=== PATIENT | female | born 1970 | race Caucasian/White ===

== ENCOUNTER 2019-07-24 08:29 | Outpatient (RCR) | payer OTHER, SELFPAY ==
--- NOTE | ~2019-07-24 | XR_ITS ---
XR chest 2V DATE: 07/19/2019 09:36 INDICATION: Productive cough. Lung crackles. TECHNIQUE: PA and lateral views COMPARISON: None FINDINGS: Heart size is within normal range. Prominent left cardiophrenic fat pad. No hilar or medias tinal enlargement. No pulmonary infiltrate or consolidation, pleural effusion or pulmonary vascular congestion or pneumo thorax. Included skeletal structures are unremarkable other than mild upper thoracic levoscoliosis. IMPRESSION: No active cardiopulmonary disease Reviewed, dictated and finalized at location A.
== END 2019-10-17 23:59 | disposition home or self-care (01) ==
LOC: ANHLAB 08:29
PROVIDERS: PCP Emergency Medicine; Visit Provider Internal Medicine Critical Care Medicine
DX: J45.909 Unspecified asthma, uncomplicated (principal); R05 Cough
CPT/HCPCS: 36415; 71046; 82785; 86003; 87015; 87070; 87102; 87107; 87116; 87205; 87206; 89190

== ENCOUNTER 2019-08-09 09:12 | Outpatient (CLI) | payer OTHER, SELFPAY ==
--- NOTE | 2019-08-15 13:49 | WPDPFTINT ---
PFT Interpretation PFT Interpretation: This PFT met all criteria for ATS standards and reproducibility FEV/FVC post bronchodilator 79% of predicted FEV1 102% or 2.38 liters FVC 97% or 3.00 liters There was signficant improvement in both FEV1 and FVC post bronchodilator but this could have been due to improved patient technique in the post bronchodilator trial TLC 109% of preidcted or 4.99 liters RV 97% RV/TLC 38% DLCO 87% when adjusted for alveolar volume but not adjusted for hemoglobin Flow volume loops were normal Nitrogen Oxide breath test measurement was 54 ppb which considered high Impression: No significant obstruction or restriction. Nitrogen Oxide breath test was high. If Asthma is still suspected but not confirmed may consider Methcholine challenge testing. If Asthma is already diagnosed, the high NIOX may suggest suboptimal control. Clinical correlation is advised.
== END 2019-08-09 09:13 | disposition home or self-care (01) ==
PROVIDERS: PCP Emergency Medicine; Visit Provider Internal Medicine Critical Care Medicine
DX: J45.909 Unspecified asthma, uncomplicated (principal)
CPT/HCPCS: 94060; 94726; 94729; 95012

== ENCOUNTER 2020-09-06 12:46 | Emergency (ER) | payer OTHER, SELFPAY ==
[2020-09-06 13:20] VITALS: BP 108/78; PULSE 92; RESP 16; TEMP 37.1; O2SAT 97
--- NOTE | 2020-09-06 13:46 | ED.URI ---
HPI - URI/Sore Throat General Chief Complaint: Upper Respiratory Infection Stated Complaint: COUGH Source: patient and RN notes reviewed Limitations: no limitations History of Present Illness HPI Narrative: The patient, a non-smoker/nondrinker hospital tech, presents with congestion and cough.. The Covid vaccinated patient notes about 1/2-week history of chills, mildly productive cough, congestion; symptoms are mild, unimproved with vfou-kev-nqmakmy preps like Mucinex. No fever, wheezing, sore throat now [but she did have initially] earache. Ribhp-lq-dhmt testing for Covid antigen is negative here. Related Data Allergies Allergy/AdvReac Type Severity Reaction Status Date / Time No Known Allergies Allergy Mild Verified 07/18/19 10:42 Review of Systems Review of Systems: Narrative: General/Constitutional: No weight loss,fever Eyes: N0: Redness,discharge Ears/Nose/Throat: No: Epistaxis,ear discharge Respiratory: Denies: Hemoptysis Gastrointestinal: No Vomiting, Bleeding-rectal Skin: No Lumps, eruption Neurologic: No Focal Weakness,Sz Hematologic: Denies: Petechiae/Purpura Psychiatric: No: Suicida ideationl All Other Systems: Reviewed and Negative PMFSH Family History Family History (System 04/08/19 @ 16:20 by Candace Bradshaw) Father Family history of cardiovascular disease Sibling Family history of malignant melanoma, Onset Age: 29 Social History Social History (Updated 07/18/19 @ 11:24 by Ada Hayes MD) Social History: Single, works at [employer], never smoked. Smoking status: Never smoker Substance use: never Gender identity (if verbalized by the patient): Female Comments At time of signature, agree with nursing past medical, surgical, social and family history. There is no relevant family history pertinent to the presenting complaint Exam Narrative: Exam Narrative: General Appearance: Well appearing, Well nourished EYE: PERRLA, Conjunctiva clear Ears: Auditory canal normal, TM normal Nose: Rhinorrhea, Mucousal erythema Mouth/Throat: MM moist, Uvula midline, Pharyngeal erythema Neck: Supple, No adenopathy Respiratory: No respiratory distress, Breath sounds equal, Clear to auscultation Cardiovascular: RRR, No JVD Musculoskeletal: Non tender, Normal strength Skin: Warm, Dry Neurological: A&O x3, CN II-XII intact Psychiatric: Normal mood, Normal affect Course Vital Signs Vital signs: Vital Signs Temperature 98.8 F 09/06/20 13:20 Pulse Rate 92 09/06/20 13:20 Respiratory Rate 16 09/06/20 13:20 Blood Pressure 108/78 09/06/20 13:20 Pulse Oximetry 97 09/06/20 13:20 Temperature 98.8 F 09/06/20 13:20 Pulse Rate 92 09/06/20 13:20 Respiratory Rate 16 09/06/20 13:20 Blood Pressure 108/78 09/06/20 13:20 Pulse Oximetry 97 09/06/20 13:20 MDM - URI/Sore Throat Lab Data Labs: Lab Results 09/06/20 Range/Units 13:48 POC SARS CoV-2 Ag Negative (Negative) Discharge Plan Discharge Clinical Impression: Upper respiratory infection Patient Disposition: Home, Self-Care Condition: Stable Prescriptions: New benzonatate [Tessalon Perles] 100 mg capsule 100 mg PO TID Qty: 20 RF: 1 azelastine 137 mcg (0.1 %) aerosol,spray 137 mcg NASAL Q12H Qty: 30 RF: 0 cefuroxime axetil 500 mg tablet 500 mg PO Q12H Qty: 14 RF: 0 Other Ambulatory Orders: SARS-CoV-2 RNA, Qual RT-PCR (Routine) Location: Determined by Patient Ordered By: Donnie Neff Follow-up/Referrals: Rudolph Lawrence MD [Primary Care Provider] -
== END 2020-09-06 14:08 | disposition home or self-care (01) ==
PROVIDERS: Emergency Provider Emergency Medicine; PCP Emergency Medicine
DX: J06.9 Acute upper respiratory infection, unspecified (principal); Z53.21 Procedure and treatment not carried out due to patient leaving prior to being seen by health care provider
CPT/HCPCS: 87426; 99213; C9803; G0463

== ENCOUNTER 2020-09-25 20:44 | Emergency (ER) | payer OTHER, SELFPAY ==
--- NOTE | ~2020-09-25 | XR_ITS ---
EXAMINATION: XR knee LT min 4V EXAM DATE: 09/25/2020 21:13 INDICATION: Pain and swelling, posterior to patella. TECHNIQUE: Left knee frontal, crosstable lateral, orthogonal oblique projections for interpretation. There is no prior study for comparison. FINDINGS: No evidence osteochondral defect or joint body in the left knee joint. There are no acute fractures or dislocations identified. There is no subcutaneous gas. There is small joint effusion. There are no radiopaque foreign bodies. No evidence of osteoarthritis. IMPRESSION: 1. XR knee LT min 4V exam without acute osseous findings. 2. Small joint effusion. Reviewed, dictated and finalized at location .
--- NOTE | ~2020-09-25 | XR_ITS ---
EXAMINATION: XR wrist RT min 3V EXAM DATE: 09/25/2020 21:13 INDICATION: No known recent injury provided at this time. Pain of the TECHNIQUE: Right wrist frontal, frontal with ulnar deviation, oblique and lateral projections obtain ed and reviewed. There is no prior study for comparison. FINDINGS: Right wrist scapholunate joint space is maintained. There are no bony erosions identified. There are no acute fractures or dislocations identified. There is no subcutaneous gas. The soft ti ssue is unremarkable. There are no radiopaque foreign bodies. IMPRESSION: 1. Unremarkable XR wrist RT min 3V exam. Reviewed, dictated and finalized at location G.
[2020-09-25 20:55] VITALS: BP 100/73; PULSE 80; RESP 18; TEMP 36.6; O2SAT 98
--- NOTE | 2020-09-25 22:45 | ED.EXTPRO ---
HPI - Extremity Problem General Chief complaint: Extremity Problem,Nontraumatic Stated complaint: bilateral knee pain and wrist pain - no injury Time Seen by Provider: 09/25/20 21:49 Source: patient and RN notes reviewed Mode of arrival: ambulatory Limitations: no limitations History of Present Illness HPI Narrative: This is a healthy 49 year old female who presents for evaluation of arthralgia. Patient states she developed right lateral wrist pain yesterday. She states she notice mild swelling and increased warmth. That improved . She then states she developed right anterior knee pain. This pain improved and then she states she noticed left anterior knee pain. She states she feels like her left knee is going to give out. Her pain improves with NSAIDs. She denies calf pain, chest pain, shortness of breath. She reports she is runner but she has not suffered a known injury. Related Data Home Medications Medication Instructions Recorded Confirmed No Home Medications 09/25/20 09/25/20 Allergies Allergy/AdvReac Type Severity Reaction Status Date / Time No Known Allergies Allergy Mild Verified 09/25/20 20:59 Review of Systems Review of Systems: All systems reviewed & are unremarkable except as noted in HPI and below PMFSH Past Medical History Medical History (Updated 09/26/20 @ 00:00 by Krissy Gipson) Patient denies medical problems Family History Family History (System 04/08/19 @ 16:20 by Candace Bradshaw) Father Family history of cardiovascular disease Sibling Family history of malignant melanoma, Onset Age: 29 Social History Social History (Updated 07/18/19 @ 11:24 by Ada Hayes MD) Social History: Single, works at [employer], never smoked. Smoking status: Never smoker Substance use: never Gender identity (if verbalized by the patient): Female Exam Const: General: no acute distress and alert Nutritional Appearance: thin Resp: Effort & Inspection: normal respiratory effort Auscultation: clear to auscultation bilaterally Cardio: Rate: regular rate Rhythm: regular rhythm Heart sounds: no murmurs Skin: General skin exam: normal color Rashes: no rashes Neuro: General: patient oriented x3 and moves all extremities Extrem: Other: FROM bilateral knees, no noticeable swelling, no redness, no increased warmth. She does have pain right wrist along ulnar no redness. Psych: Mental Status: mental status grossly normal Affect: normal affect Course Reevaluation(s) Reevaluation #1: I discussed with patient and treatment of arthritis. She does have small left knee effusion. I discussed that she may be suffering from inflammatory arthritis . Treatment at this point with NSAIDs, rest and ice and she will follow up with PCP. This does not appear to be DVT, septic arthritis and gout given multiple joints. Date: 09/25/20 Time: 22:49 Vital Signs Vital signs: Vital Signs Temperature 97.8 F 09/25/20 20:55 Pulse Rate 80 09/25/20 20:55 Respiratory Rate 18 09/25/20 20:55 Blood Pressure 100/73 09/25/20 20:55 Pulse Oximetry 98 09/25/20 20:55 Temperature 97.8 F 09/25/20 20:55 Pulse Rate 80 09/25/20 20:55 Respiratory Rate 18 09/25/20 20:55 Blood Pressure 100/73 09/25/20 20:55 Pulse Oximetry 98 09/25/20 20:55 MDM - Extremity (Nontraumatic) Imaging Data Radiologist's impression: ITS Impressions Wrist X-Ray 09/25/20 21:22 IMPRESSION: 1. Unremarkable XR wrist RT min 3V exam. Knee X-Ray 09/25/20 21:23 IMPRESSION: 1. XR knee LT min 4V exam without acute osseous findings. 2. Small joint effusion. Discharge Plan Discharge Clinical Impression: Polyarthralgia, Effusion, left knee Patient Disposition: Home, Self-Care Condition: Stable Instructions: Antibiotic Form, Swollen Knee Joint (ED), Arthritis (ED) Additional Instructions: Call yo
== END 2020-09-25 23:18 | disposition home or self-care (01) ==
PROVIDERS: Emergency Provider General Practice; PCP Emergency Medicine
DX: M25.531 Pain in right wrist (principal); M25.462 Effusion, left knee; M25.562 Pain in left knee
CPT/HCPCS: 73110; 73564; 99284

== ENCOUNTER 2021-02-09 07:12 | Outpatient (CLI) | payer OTHER, SELFPAY ==
[2021-02-09 07:43] LABS: Basophils Absolute Auto 0.1 K/mm3 (0.0-0.1); Basophils Percent Auto 0.9 % (0.2-1.2); Eosinophils Absolute Auto 0.3 K/mm3 (0-0.3); Eosinophils Percent Auto 4.2 % (0-4.4); Hematocrit 42.3 % (37.0-47.0); Hemoglobin 14.3 g/dL (12.0-15.0); Immature Granulocyte Absolute 0.04 K/mm3 (0.00-0.031); Immature Granulocyte Percent A 0.6 % (0-0.5); Lymphocytes Absolute Auto 2.13 K/mm3 (0.9-3.2); Lymphocytes Percent Auto 32.3 % (18.3-44.2); Mean Corpuscular HGB Conc 33.8 g/dl (32-36); Mean Corpuscular Hemoglobin 30.7 pg (26-34); Mean Corpuscular Volume 90.8 fl (80-100); Mean Platelet Volume 10.4 fl (7.4-10.4); Monocytes Absolute Auto 0.5 K/mm3 (0.1-0.6); Neutrophils Absolute Auto 3.6 K/mm3 (1.3-6.7); Platelet Count Result 314 k/mm3 (150-375); Red Blood Count 4.66 M/mm3 (4.2-5.4); Red Cell Distribution Width 13.9 % (11.5-14.5); White Blood Count 6.6 K/mm3 (4.5-10.0)
[2021-02-09 08:10] LABS: Alanine Aminotransferase 22 U/L (4-35); Albumin Level 4.5 g/dL (3.5-5.1); Alkaline Phosphatase 61 U/L (38-126); Anion Gap 6 mmol/L (8-16); Aspartate Amino Transferase 26 U/L (14-36); Bilirubin,Total 0.8 mg/dL (0.2-1.3); Blood Urea Nitrogen 16 mg/dL (7-17); Calcium 9.4 mg/dL (8.4-10.2); Carbon Dioxide 28 mmol/L (22-30); Chloride 102 mmol/L (98-107); Cholesterol 251 mg/dL (0-200); Estimated Glomerular Filt Rate > 60; Glucose 111 mg/dL (65-110); HDL Direct 103 mg/dL; Potassium 3.8 mmol/L (3.4-5.0); Sodium 136 mmol/L (137-145); Triglycerides 98 mg/dL (<150)
[2021-02-09 08:22] LABS: LDL Cholesterol Direct 116 mg/dL
[2021-02-09 08:26] LABS: Free T4 Free Thyroxine 1.42 ng/mL (0.78-2.19)
== END 2021-02-09 07:13 | disposition home or self-care (01) ==
PROVIDERS: PCP Emergency Medicine; Visit Provider Physician Assistant
DX: R61 Generalized hyperhidrosis (principal); Z00.00 Encounter for general adult medical examination without abnormal findings; Z13.220 Encounter for screening for lipoid disorders
CPT/HCPCS: 36415; 80053; 80061; 84439; 84443; 85025

== ENCOUNTER 2021-08-10 11:13 | Emergency (ER) | payer OTHER, SELFPAY ==
[2021-08-10 11:25] VITALS: BP 103/75; PULSE 90; RESP 16; TEMP 37.8; O2SAT 98
--- NOTE | 2021-08-10 11:49 | ED.URI ---
HPI - URI/Sore Throat General Chief Complaint: Upper Respiratory Infection Stated Complaint: Sinus Time Seen by Provider: 08/10/21 11:49 Source: patient and RN notes reviewed Mode of arrival: ambulatory Limitations: no limitations History of Present Illness HPI Narrative: 50-year-old female presents to the [facility] with complaints of sinus issues and pressure. States its been going on for years. Has a history of asthma. Has had fevers. Has tried multiple dxfl-xdi-rwyanco products with no relief. Related Data Allergies Allergy/AdvReac Type Severity Reaction Status Date / Time No Known Allergies Allergy Mild Verified 09/25/20 20:59 Review of Systems Review of Systems: All systems reviewed & are unremarkable except as noted in HPI and below Constitutional: Constitutional: Reports no additional constitutional complaints, Denies chills and Denies fever(s) Eyes: Eyes: Reports no additional eye complaints ENT: Reports as per HPI and Reports nasal congestion Cardiovascular: Cardiovascular: Reports no additional cardiovascular complaints Respiratory: Respiratory: Reports no additional respiratory complaints Gastrointestinal: Gastrointestinal: Reports no additional gastrointestinal complaints Musculoskeletal: Musculoskeletal: Reports no additional musculoskeletal complaints Integumentary/Breasts: Skin/Breast: Reports system reviewed and no additional complaints, except as docu Neurologic: Reports system reviewed and no additional complaints, except as documented Psychiatric: Psychiatric: Reports no additional psychiatric complaints Allergic/Immunologic: Allergic/Immunologic: Reports no additional allergic/immunologic complaints PMFSH Past Medical History Medical History (Updated 08/10/21 @ 19:17 by Kym Lemos APRN) Patient denies medical problems Family History Family History Father Family history of cardiovascular disease Sibling Family history of malignant melanoma, Onset Age: 29 Social History Social History Social History: Single, works at [employer], never smoked. Smoking status: Never smoker Substance use: never Gender identity (if verbalized by the patient): Female Comments At the time of my signature, I reviewed and agree with the nursing past medical, surgical, social, and family history. There is no relevant family history pertinent to the patient complaint. Exam Const: General: healthy appearing, no acute distress and alert Nutritional Appearance: well nourished Orientation/consciousness: patient oriented x3 Limitations: no limitations HENMT: Head: normal to inspection Ears: external ears normal General nose exam: Normal external nose present, Abnormal mucous membranes and turbinates present boggy bilateral and erythematous bilateral and Nasal discharge present clear Throat: uvula midline and postnasal drainage Eyes: General: appearance normal, both eyes and all related structures Pupils: Equal, round and reactive pupils present Neck: Neck: normal visual inspection, no lymphadenopathy and no meningeal signs Chest: Chest palpation & inspection: normal inspection of the chest Resp: Effort & Inspection: normal respiratory effort and no use of accessory muscles Auscultation: clear to auscultation bilaterally, no crackles, no rales, no rhonchi and no wheezes Cardio: Rate: regular rate Rhythm: regular rhythm Back/Spine/Pelvis: Cervical Spine: normal cervical lordosis Thoracic/Lumbar Spine: thoracic and lumbar spine normal to inspection Skin: General skin exam: normal color Rashes: no rashes Wounds: no wounds Neuro: General: patient oriented x3, moves all extremities, no meningeal signs and no focal motor deficits Cranial nerves: Yes Equal, round and reactive pupils present Speech: normal speech Gait exam (Neuro): Normal gait present
[2021-08-10 21:05] LABS: SARS-CoV-2 RNA PCR Positive
== END 2021-08-10 12:28 | disposition home or self-care (01) ==
PROVIDERS: Emergency Provider Nurse Practitioner; PCP Emergency Medicine
DX: U07.1 COVID-19 (principal); J45.909 Unspecified asthma, uncomplicated
CPT/HCPCS: 87804; 99213; C9803; G0463; U0003; U0005

== ENCOUNTER 2021-10-19 07:58 | Outpatient (CLI) | payer OTHER, SELFPAY ==
--- NOTE | ~2021-10-19 | MM_ITS ---
EXAMINATION: MM screening jhonny BI w karson HISTORY: Screening mammogram TECHNIQUE: Craniocaudal and mediolateral oblique 3-D tomosynthesis images were obtained and synthetic 2-D images were generated. CAD analysis was submitted and interpreted. COMPARISON: 03/28/2009 bilateral screening mammogram BREAST PARENCHYMAL COMPOSITION: The breasts are heterogeneously dense, which may obscure small masses . FINDINGS: There are bilateral mammographic asymmetries. Bilateral diagnostic mammography is recommended, with u ltrasound if required. IMPRESSION: 1. Bilateral mammographic asymmetries 2. Bilateral diagnostic mammography is recommended, with ultrasound if required BI-RADS Category 0: Incomplete: Needs additional imaging evaluation. Reviewed, dictated and finalized at location A.
== END 2021-10-19 07:59 | disposition home or self-care (01) ==
LOC: ANHIMG 07:59
PROVIDERS: PCP Emergency Medicine; Visit Provider Physician Assistant
DX: Z12.31 Encounter for screening mammogram for malignant neoplasm of breast (principal)
CPT/HCPCS: 77063; 77067

== ENCOUNTER 2021-11-05 12:59 | Outpatient (CLI) | payer OTHER, SELFPAY ==
--- NOTE | ~2021-11-05 | MMUS_ITS ---
EXAMINATION: MM diagnostic jhonny BI w karson, US breast BI limited HISTORY: Bilateral breast asymmetries on screening mammogram TECHNIQUE: Additional 3-D tomosynthesis images of the breasts were performed and synthetic 2-D images were generated. CAD analysis was submitted and interpreted. High resolution limited bilateral breast ultrasound was performed. COMPARISON: 10/19/2021, 03/28/2009 FINDINGS: MAMMOGRAPHIC FINDINGS: No persistent asymmetry is identified with spot compression of either breast. There is no suspicious mass, calcification, or architectural distortion. ULTRASOUND: No suspicious cystic or solid mass is identified in either breast. IMPRESSION: 1. No mammographic or sonographic evidence of malignancy. 2. Recommend routine screening mammography in one year. BI-RADS Category 1: Negative Reviewed, dictated and finalized at location A. IMPRESSION: 1. No mammographic or sonographic evidence of malignancy. 2. Recommend routine screening mammography in one year. BI-RADS Category 1: Negative
== END 2021-11-05 13:00 | disposition home or self-care (01) ==
LOC: ANHIMG 13:00
PROVIDERS: PCP Physician Assistant; Visit Provider Physician Assistant
DX: R92.8 Other abnormal and inconclusive findings on diagnostic imaging of breast (principal)
CPT/HCPCS: 76642; 77062; 77066; G0279

== ENCOUNTER 2021-11-22 00:13 | Day surgery (SDC) | payer OTHER, SELFPAY ==
[2021-11-04 14:30] VITALS: BMI 22.9
[2021-11-22 10:46] VITALS: BP 100/63; PULSE 71; RESP 17; TEMP 36.3; O2SAT 99; BMI 22.6
[2021-11-22] MEDS: LACTATED RINGERS 1,000 ML 150 ML IV CONT (10:55)
--- NOTE | 2021-11-22 10:58 | P.HP_ITS ---
H&P: HPI History of Present Illness Date/Time: 11/22/21 10:58 Chief Complaint: Neoplasia screening. Narrative: This is a 51-year-old white female patient presents for screening colonoscopy. Patient's current weight appetite and bowel movements are normal. She denies abdominal pain. Patient has had no bleeding. Family history is noncontributory. Review of Systems Review of Systems: Review of systems noncontributory. [facility] Past Medical History Medical History (Updated 11/22/21 @ 10:59 by Dieudonne Mandujano MD) Patient denies medical problems Family History Family History Father Family history of cardiovascular disease Sibling Family history of malignant melanoma, Onset Age: 29 Social History Social History (System 08/11/21 @ 07:25 by Elvis Aguiar) Social History: Single, works at [employer], never smoked. Smoking status: Never smoker Substance use: never Substance use type: does not use Living arrangements: with family Gender identity (if verbalized by the patient): Female Spiritual care concerns: No Meds Home Medications and Allergies Home Medications Medication Instructions Recorded Confirmed Type mecobalamin (vitamin B12) 1,000 1,000 mcg PO DAILY 11/04/21 11/22/21 History mcg chewable tablet Allergies Allergy/AdvReac Type Severity Reaction Status Date / Time No Known Allergies Allergy Mild Verified 11/22/21 10:45 Vital Signs Vital Signs - 24 hr 11/22/21 10:46 Temperature 97.4 F L Pulse Rate 71 Respiratory Rate 17 Blood Pressure 100/63 Pulse Oximetry 99 Oxygen Delivery Room Air Exam Narrative: Physical exam reveals patient to be alert. Vital signs stable. HEENT exam is unremarkable. Lungs are clear to auscultation and percussion. Heart is without murmur or extra sounds. Abdomen bowel sounds present soft nontender with no organomegaly. Digital external rectal exam is normal. Assessment and Plan Assessment and plan (1) Encounter for screening colonoscopy: Code(s): Z12.11 - Encounter for screening for malignant neoplasm of colon Status: Acute Assessment and Plan: Neoplasia screening colonoscopy advised because of age. Further recommendations will be given after endoscopy.
--- NOTE | 2021-11-22 11:14 | WPDANESEPPF ---
Anes - Initial Pre Proc Eval Procedure: Operation Date: 11/22/21 11:30 Proposed Procedures p Screening Colonoscopy - Dieudonne Mandujano MD Date/Time: 11/22/21 11:14 Surgeon: Dieudonne Mandujano MD Pre Op Diagnosis: neoplasm screening Patient Data Age: 51 Gender: F Height: 1.57 m Weight: 56.3 kg Last Vital Signs Temp 97.4 F L 11/22/21 10:46 Pulse 71 11/22/21 10:46 Resp 17 11/22/21 10:46 BP 100/63 11/22/21 10:46 Pulse Ox 99 11/22/21 10:46 O2 Del Method Room Air 11/22/21 10:46 Allergies Allergy/AdvReac Type Severity Reaction Status Date / Time No Known Allergies Allergy Mild Verified 11/22/21 10:45 Home Medications Medication Instructions Recorded Confirmed Type mecobalamin (vitamin B12) 1,000 1,000 mcg PO DAILY 11/04/21 11/22/21 History mcg chewable tablet Patient hx anesthesia problems: none Family hx anesthesia problems: none Results Review: All pre-operative results and documents have been reviewed as part of the pre-operative evaluation. [facility] Past Medical History Medical History (Updated 11/22/21 @ 10:59 by Dieudonne Mandujano MD) Patient denies medical problems Family History Family History Father Family history of cardiovascular disease Sibling Family history of malignant melanoma, Onset Age: 29 Social History Social History (System 08/11/21 @ 07:25 by Elvis Aguiar) Social History: Single, works at [employer] never smoked. Smoking status: Never smoker Substance use: never Substance use type: does not use Living arrangements: with family Gender identity (if verbalized by the patient): Female Spiritual care concerns: No Anes - Eval Final PreProcedure Day of Procedure 11/22/21 11:14 Patient weight: normal Heart: regular rate and rhythm Lungs: clear to auscultation Airway: Mallampati scale class II Neurological: alert and oriented Last oral intake: >/= 8 hours ASA classification: I Emergent: no Anesthetic plan: proceed Anesthesia type and monitoring: general GIVS and standard monitoring Results Review: All pre-operative results and documents have been reviewed as part of the pre-operative evaluation. Informed Consent: The patient's anesthetic plan and its attendant risks and benefits were discussed with the patient/family/POA. Questions were solicited and answers provided to the satisfaction of the patient/family/POA.
[2021-11-22 11:57] VITALS: BP 92/58; PULSE 69; RESP 21; O2SAT 99
[2021-11-22 12:07] VITALS: BP 99/67; PULSE 68; RESP 19; O2SAT 99
[2021-11-22 12:17] VITALS: BP 95/62; PULSE 69; RESP 19; O2SAT 99
== END 2021-11-22 12:24 | disposition home or self-care (01) ==
PROVIDERS: PCP Physician Assistant; Visit Provider Internal Medicine Gastroenterology
PROC: 0DJD8ZZ Inspection of Lower Intestinal Tract, Via Natural or Artificial Opening Endoscopic (ICD-10-PCS; CPT 45378; principal; 2021-11-22 11:30)
DX: Z12.11 Encounter for screening for malignant neoplasm of colon (principal)
CPT/HCPCS: 45378; J2704; J7120

== ENCOUNTER 2023-11-29 07:47 | Outpatient (CLI) | payer OTHER, SELFPAY ==
--- NOTE | ~2023-11-29 | DEXA_ITS ---
Bone Density Report Name: ARLENE GRAYSON Age: 53 Sex: Female Ethnicity: White Date of : 1970 Indication: postmenopausal; screening for osteoporosis; Referring Provider: JOE CARLSON Study: Bone densitometry was performed. Exam Date: November 29, 2023 Accession number: [id number] Bone Density: Region BMD T-score Z-score Classification AP Spine(L1-L4) 0.858 -1.7 -0.6 Osteopenia Femoral Neck (Left) 0.699 -1.4 -0.3 Osteopenia Total Hip (Left) 0.883 -0.5 0.2 Normal Femoral Neck (Right) 0.695 -1.4 -0.3 Osteopenia Total Hip (Right) 0.886 -0.5 0.2 Normal Total Hip Mean 0.885 -0.5 0.2 Normal World Health Organization criteria for BMD impression classify patients as: Normal (T-score at or above -1.0), Osteopenia (T-score between -1.0 and -2.5), or Osteoporosis (T-score at or below -2.5). 10-year Fracture Risk(1): Major Osteoporotic Fracture 6.3% Hip Fracture 0.5% Reported Risk Factors: [place] (), Neck BMD=0.695, BMI=23.6 (1) FRAX(R) Version 3.08. Fracture probability calculated for an untreated patient. Fracture probability may be lower if the patient has received treatment. Clinical Information Provided by Patient: Has used the following medications: Vitamin D, Calcium Patient maximum height was 62.5 Does not regularly consume dairy products Drinks caffeinated beverages Onset of menses at age 10 Number of children 1 Impression: The patient has low bone mass, based on the Total Spine T-score. The patient has an estimated ten-year risk of hip fracture of 0.5% and an estimated ten-year risk of major fracture of 6.3%, based on the WHO FRAX algorithm. Discussion: BONE DENSITY IS LOW AT ONE OR MORE SKELETAL SITES. This patient's lowest T-score is low at one or more skeletal sites. It meets the World Health Organization's (WHO) criteria for ?low bone mass? (T-score between -1.0 and -2.5). The patient's 10-year risk of fracture as calculated by FRAX is less than the threshold where pharmacological therapy is recommended by the National Osteoporosis Foundation (NOF). However, all treatment decisions require clinical judgment and consideration of individual patient factors, including patient preferences, comorbidities, previous drug use, risk factors not captured in the FRAX model (e.g., frailty, falls, vitamin D deficiency, increased bone turnover, interval significant decline in bone density) and possible under or overestimation of fracture risk by FRAX. The patient should follow a healthful lifestyle (good nutrition with adequate calcium and vitamin D, and appropriate weight-bearing exercise). Follow-Up: Consider repeating this study in 2 to 3 years to reassess this patient's status, or sooner if there is some new clinical indication. Reported by: IVETTE on 11/29/19
== END 2023-11-29 07:48 | disposition home or self-care (01) ==
LOC: ANHIMG 07:49
PROVIDERS: PCP Physician Assistant; Visit Provider Obstetrics & Gynecology
DX: M81.0 Age-related osteoporosis without current pathological fracture (principal); M85.89 Other specified disorders of bone density and structure, multiple sites; Z13.820 Encounter for screening for osteoporosis
CPT/HCPCS: 77080